=== PATIENT | female | born 1965 | race Caucasian/White ===

== ENCOUNTER 2018-06-06 07:51 | Day surgery (SDC) | payer OTHER ==
[2018-06-05 15:26] VITALS: BMI 32.9
[2018-06-06 10:10] VITALS: TEMP 98.3
[2018-06-06 10:45] VITALS: BP 130/84; PULSE 66
--- NOTE | 2018-06-07 15:02 | PATH ---
Surgical Pathology Report Patient Name: AUBREY AUGUSTINE [facility]. Rec. #: [id number] /Age/Gender: 1965 (Age: 53) / F Account: [id number] Location: [facility]-ENDOSCOPY Taken: 06/06/2018 Received: 06/06/2018 Reported: 06/07/2018 Physicians: Arben Lambert D.O. Specimen(s) Received POLYP SIGMOID Clinical History Screening Postoperative diagnosis: Colon polyp and hemorrhoids Final Diagnosis SIGMOID COLON, POLYP, BIOPSY: POLYPOID COLONIC MUCOSA WITH PROMINENT LYMPHOID AGGREGATE. Electronically Signed Nicole Sims M.D. Gross Description Received in formalin, labeled "sigmoid colon polyp biopsy" are 2 martin, irregular portions of soft tissue measuring 0.2 and 0.6 cm. in greatest dimension. The specimens are submitted in toto in one cassette. /06/06/201806/06/2018
== END 2018-06-06 10:46 | disposition home or self-care (01) ==
LOC: JASU-ENDO 07:51
PROVIDERS: ATTEND Internal Medicine Gastroenterology
PROC: 0DBN8ZX Excision of Sigmoid Colon, Via Natural or Artificial Opening Endoscopic, Diagnostic (ICD-10-PCS; principal; 2018-06-06 09:45)
DX: Z12.11 Encounter for screening for malignant neoplasm of colon (principal); D12.5 Benign neoplasm of sigmoid colon; K63.89 Other specified diseases of intestine; K64.8 Other hemorrhoids
CPT/HCPCS: 88305-TC

== ENCOUNTER 2021-12-09 06:03 | Day surgery (SDC) | payer OTHER ==
[2021-12-09] MEDS ORDERED: SODIUM CHLORIDE 0.9% 500 ML INFUS.BAG IV ONE (07:26)
[2021-12-09 08:39] LABS: BASO % 0.6 % (0-2.0); EOS % 2.8 % (0-4.5); HEMATOCRIT 39.5 % (32.4-45.2); HEMOGLOBIN 13.1 GM/dL (10.7-15.3); LYMPH % 27.9 % (8-40); MCH 29.7 pg (25.7-33.7); MCHC 33.2 g/dl (32.0-36.0); MEAN CELL VOLUME 89.4 fl (80-96); MEAN PLT VOLUME 10.2 fl (7.5-11.1); MONO % 9.2 % (3.8-10.2); NEUT % 59.5 % (42.8-82.8); PLATELET COUNT 225 10^3/uL (134-434); RBC 4.42 M/mm3 (3.60-5.2); RDW 13.4 % (11.6-15.6)
[2021-12-09 08:56] LABS: INR 1.09 (0.83-1.09); PROTHROMBIN TIME (PATIENT) 12.6 SEC (9.7-13.0)
[2021-12-09 08:59] LABS: ACTIVATED PTT 36.6 SECONDS (25.2-36.5)
[2021-12-09 09:17] LABS: EPI CELLS >36 /uL (0-25.1); HYALINE CASTS 8 /uL (0-3.1); PH,URINE 5.5 (5.0-8.0); URINE APPEARANCE CLOUDY; URINE BACTERIA 1351 /uL (0-1359); URINE BILIRUBIN NEGATIVE (NEGATIVE); URINE COLOR YELLOW; URINE GLUCOSE (UA) NEGATIVE (NEGATIVE); URINE KETONE TRACE (NEGATIVE); URINE LEUK ESTERASE 2+ (NEGATIVE); URINE NITRITE NEGATIVE (NEGATIVE); URINE PROTEIN TRACE (NEGATIVE); URINE RBC 8 /uL (0-23.9); URINE UROBILINOGEN 0.2 mg/dL (0.2-1.0); URINE WBC 179 /uL (0-25.8)
[2021-12-09 09:18] LABS: ALBUMIN 4.1 g/dl (3.4-5.0); BLOOD UREA NITROGEN 8.1 mg/dL (7-18); CALCIUM 9.4 mg/dL (8.5-10.1)
[2021-12-09 09:22] LABS: BILIRUBIN,TOTAL 0.6 mg/dL (0.2-1); CREATININE 0.8 mg/dL (0.55-1.3); TOT PROT 7.5 g/dl (6.4-8.2)
[2021-12-09] MEDS ORDERED: ACETAMINOPHEN 1000 MG/100 ML BAG IVPB PRN ×2 (10:22→16:43)
[2021-12-09] MEDS ORDERED: cefOXitin SODIUM 1 GM/10 ML PUSH (RESTRICTED TO ID) IVPUSH ONE (10:30)
[2021-12-09] MEDS ORDERED: CEFOXITIN SODIUM 1 GM in DEXTROSE 5%-WATER - 100 ML IVPB ONE (11:00)
[2021-12-09] MEDS ORDERED: DEXTROSE 5%-NORMAL SALINE 1,000 ML IV SCH (11:15)
[2021-12-09] MEDS ORDERED: BUPIVACAINE HCL/PF 0.5% (5MG/ML) 10 ML VIAL IJ ONE (12:38)
[2021-12-09 13:27] VITALS: BMI 31.1
[2021-12-09] MEDS ORDERED: BUPIVACAINE HCL/PF 0.25% (2.5MG/ML) 10 ML VIAL ONE (14:15)
[2021-12-09] MEDS ORDERED: MIDAZOLAM HCL 2 MG/2 ML SINGLE DOSE VIAL ONE ×2 (14:45→15:02)
[2021-12-09] MEDS ORDERED: LIDOCAINE HCL/PF 2% SDV 5ML VIAL ONE (14:45)
[2021-12-09] MEDS ORDERED: PROPOFOL 20 ML ONE (14:45)
[2021-12-09] MEDS ORDERED: DEXAMETHASONE SOD PHOSPHATE 4 MG/1 ML VIAL ONE (14:45)
[2021-12-09] MEDS ORDERED: ROCURONIUM BROMIDE 50 MG/5 ML SYRINGE ONE (14:45)
[2021-12-09] MEDS ORDERED: GLYCOPYRROLATE 0.2 MG/1 ML VIAL ONE (15:55)
[2021-12-09] MEDS ORDERED: KETOROLAC TROMETHAMINE 30 MG/1 ML VIAL ONE (15:55)
[2021-12-09] MEDS ORDERED: NEOSTIGMINE METHYLSULFATE 0.5 MG/ML - 10 ML MDV ONE (15:56)
[2021-12-09] MEDS ORDERED: oxyCODONE HCL 5 MG TABLET PO PRN ×2 (16:32)
[2021-12-09] MEDS ORDERED: ONDANSETRON 4 MG/2 ML VIAL IVPUSH PRN (17:59)
[2021-12-09 18:22] VITALS: RESP 18
[2021-12-09] MEDS: DEXTROSE 5%-NORMAL SALINE 1,000 ML IV SCH ×2 (18:33→18:47)
[2021-12-09] MEDS: LACTATED RINGERS SOLUTION 1,000 ML IV SCH (21:18)
[2021-12-10] MEDS: LACTATED RINGERS SOLUTION 1,000 ML IV SCH (07:48)
[2021-12-10 08:25] LABS: BASO % 0.1 % (0-2.0); EOS % 0.1 % (0-4.5); HEMATOCRIT 36.7 % (32.4-45.2); HEMOGLOBIN 12.2 GM/dL (10.7-15.3); LYMPH % 11.2 % (8-40); MCHC 33.4 g/dl (32.0-36.0); MEAN CELL VOLUME 89.8 fl (80-96); MEAN PLT VOLUME 10.2 fl (7.5-11.1); MONO % 6.6 % (3.8-10.2); PLATELET COUNT 211 10^3/uL (134-434); RBC 4.08 M/mm3 (3.60-5.2); RDW 13.5 % (11.6-15.6); WHITE BLOOD COUNT 10.8 K/mm3 (4.0-10.0)
[2021-12-10 08:48] LABS: CALCIUM 8.7 mg/dL (8.5-10.1)
[2021-12-10 08:49] LABS: MAGNESIUM 2.2 mg/dL (1.8-2.4)
[2021-12-10 08:52] LABS: CREATININE 0.7 mg/dL (0.55-1.3)
[2021-12-10 12:52] VITALS: BP 131/82; PULSE 79; TEMP 98.3
== END 2021-12-10 15:54 | disposition home or self-care (01) ==
LOC: JER 06:03 → SUATTDRO 09:39 → JASUSAT 09:39 → JERBED 09:39 → UNDOADMIN 09:39 → J7W 12:49 → JERBED 12:49 → J7W 16:39 → JASUSAT 12-10 15:00 → J7W 12-10 15:00 → JASUSAT 12-10 15:54
PROVIDERS: ATTEND Internal Medicine
PROC: 0FT44ZZ Resection of Gallbladder, Percutaneous Endoscopic Approach (ICD-10-PCS; principal; 2021-12-09 14:00)
DX: K81.0 Acute cholecystitis (principal)
CPT/HCPCS: 0241U-QW; 36415; 71046-TC-FY; 80048; 80053; 81003; 83690; 83735; 84100; 85025; 85610; 85730; 86850; 86900; 86901; 87086; 88304-TC; 93005; 93010; 94760; 99285-25